=== PATIENT | female | born 1985 | race Caucasian/White ===

== ENCOUNTER → 2018-11-02 | Outpatient (CLI) | payer BC ==
[~2018-11-02] MED LIST: IBU600 MG PO; MOTRIN 600600 MG/TAB PO; PERCOCET 325 MG1 TA2 PO; PRENATAL1 TA1 PO; PRENATAL1 TA7 PO; RHINOCORT0.032 MG/1 NS
== END ==
LOC: MC.RAD 10-26 09:00
DX: N64.4 Mastodynia (principal)

== ENCOUNTER → 2021-03-03 | Outpatient (CLI) | payer BC ==
[~2021-03-03] VITALS: Ht 167.6 cm; Wt 65.0 kg
[2021-03-03 12:32] VITALS: BP 106/71; PULSE 69; TEMP 97.8
--- NOTE | 2021-03-03 13:25 | NUR ---
PT CANCELLED BY DR GARCIA
== END ==
LOC: COL.RAD 02-26 12:00
DX: R59.0 Localized enlarged lymph nodes (principal)

== ENCOUNTER → 2022-07-14 | Outpatient (CLI) | payer BC | LOC: MC.RAD 13:54 | DX: N63.32 Unspecified lump in axillary tail of the left breast (principal); R59.0 Localized enlarged lymph nodes ==